=== PATIENT | male | born 2000 | race Caucasian/White ===

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

== ENCOUNTER 2022-01-14 02:58 | Emergency (ER) | payer MEDICAID, OTHER ==
[~2022-01-14] VITALS: Ht 172.7 cm; Wt 82.0 kg
[~2022-01-14 02:58] MED LIST changes: +METO-293 MT
[2022-01-14] MEDS ORDERED: ONDANSETRON HCL 4MG/2ML INJ IV STA (06:32)
[2022-01-14] MEDS ORDERED: KETOROLAC 30MG/ML VIAL IV STA (06:32)
[2022-01-14] MEDS ORDERED: SODIUM CHLORIDE 0.9% 1,000 ML IV ONE (06:45)
[2022-01-14 07:21] LABS: CHLORIDE 101 mEq/L (98-107)
[2022-01-14 07:29] LABS: BASOPHILS % 0.6 % (0.0-2.0); EOSINOPHILS % 0.3 % (0.0-5.0); HEMATOCRIT. 44.4 % (42.0-52.0); MEAN CORPUSCULAR HEMOGLOBIN 27.2 pg (28.0-32.0); MEAN CORPUSCULAR VOLUME 80.6 fL (80.0-94.0); MEAN PLATELET VOLUME 9.4 fl (7.4-10.4); MONOCYTES % 5.2 % (2.0-8.0); NEUTROPHILS % 75.9 % (40.0-76.0); PLATELET 391 x1000/uL (130-400); RED BLOOD CELL COUNT 5.51 mill/uL (4.7-6.1)
[2022-01-14] MEDS ORDERED: DICYCLOMINE HCL 10MG CAPSULE PO ONE (08:30)
[2022-01-14] MEDS ORDERED: MAGNESIUM/ALUMINUM HYDROXIDE/SIMETHICONE 30ML UDC PO ONE (08:30)
[2022-01-14] MEDS ORDERED: ONDA4TAB50 MT (08:37)
[2022-01-14 09:15] VITALS: BP 104/74
== END 2022-01-14 09:24 | disposition home or self-care (01) ==
LOC: ER 02:58
DX: R10.32 Left lower quadrant pain (principal); R11.2 Nausea with vomiting, unspecified; E11.65 Type 2 diabetes mellitus with hyperglycemia; K21.9 Gastro-esophageal reflux disease without esophagitis; Z79.4 Long term (current) use of insulin
CPT/HCPCS: 36415; 74176; 80053; 82962; 83690; 85025; 96361; 96374; 96375; 99284; J1885; J2405; J7030